=== PATIENT | female | born 1975 ===

== ENCOUNTER → 2025-08-31 15:36 | Outpatient (REF) | payer BC, SELFPAY ==
--- NOTE | 2025-08-31 15:36 | S_PTH ---
PATIENT: Kathy Vogel LOC: [facility] U#:[id number] AGE/SX: 50/F ROOM: RE08/31/[address]: Reid Negron MD : 1975 BED: DIS: SPEC #: [id number] RECD: 09/01/25 07:03 STATUS: JACE LUNA #: [id number] GERALDINE: 08/31/25 15:[address]: Reid Negron DEPT: [facility] Surgical RECD BY: Mary Haque ENTERED: 09/01/25 07:03 SP TYPE: Surgical OTHR DR: UNKNOWN,DOCTOR Tissues: A - Skin Procedures: Hematoxylin and Eosin Stain Gross and Microscopic Level 4
--- OUTSIDE RECORDS SUMMARY | 2025-08-31 16:12 | XMS_ITS | Clinical Summary ---
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 Gender Identity Not on file Sexual Orientation Not on file Plan of Treatment Health Maintenance Due Date Last Done Comments Cervical Cancer Screening Pap Smear (Age 30 to 64) Every 3 Years 1974 Colorectal Cancer Screening Colonoscopy (10 Years) 1974 Annual Physical 1977 Hepatitis C 1992 DTaP, Tdap and Td Vaccines (1 - Tdap) 1993 Hepatitis B Vaccines (1 of 3 - 19+ 3-dose series) 1993 Cervical Cancer Screening Pap with HPV Testing (Age 30 to 64) Every 5 Years 2004 Cervical Cancer Screening with HPV 2004 Mammogram Screening 2014 Pneumococcal Vaccine: 50+ Years (1 of 1 - PCV) 2024 Zoster Vaccines (1 of 2) 2024 COVID-19 Vaccine (3 - season) 2025 02/02/2021, 01/05/2021 Influenza Adult (#1) 2025 08/10/2022, 08/05/2020, 07/30/2019, Additional history exists Hepatitis A Vaccines Aged Out No long er eligible based on patient's age to complete this topic Meningococcal B Vaccine Aged Out No l onger eligible based on patient's age to complete this topic Meningococcal Vaccine Aged Out No georgette demetrio eligible based on patient's age to complete this topic RSV Immunizations Under 20 Months Aged Out No longer eligible based on patient's age to complete this topic [place] [address] [place] [address] Care Teams Java J2Ee Application Developer Relationship Specialty [place] [address] [place] [address] PCP - General FAMILY PRACTICE 01/04/25
== END ==
LOC: ANHLAB 15:36
PROVIDERS: Visit Provider Plastic Surgery
DX: L90.5 Scar conditions and fibrosis of skin (principal); D48.5 Neoplasm of uncertain behavior of skin
CPT/HCPCS: 88305